=== PATIENT | male | born 1995 | race African-American/Black ===

== ENCOUNTER 2020-11-22 15:09 | Inpatient (IN) | payer BC, MEDICAID ==
[~2020-11-22] VITALS: Ht 172.7 cm; Wt 63.0 kg
[2020-11-22 16:04] VITALS: BP 123/78
[2020-11-22] MEDS ORDERED: IBUPROFEN 400MG TABLET PO PRN (17:45)
[2020-11-22] MEDS ORDERED: POLYETHYLENE GLYCOL 3350 (17GM) 1 DOSE PACK PO PRN (18:00)
[2020-11-22] MEDS ORDERED: LORAZEPAM 2MG/ML CPJ IM PRN (18:00)
[2020-11-22] MEDS ORDERED: SENNOSIDES 8.6MG TABLET PO PRN (18:00)
[2020-11-22] MEDS ORDERED: ONDANSETRON HCL 4MG TABLET PO PRN (18:00)
[2020-11-22] MEDS ORDERED: NALOXONE HCL 0.4MG/ML VIAL IV PRN (18:15)
[2020-11-22 18:25] VITALS: BP 123/78
[2020-11-22] MEDS: ACETAMINOPHEN 500MG TABLET PO PRN (19:57)
[2020-11-22] MEDS: OXYCODONE HCL 5MG TABLET PO PRN (19:58)
[2020-11-22 20:00] VITALS: BP 129/84
[2020-11-22] MEDS: LEVETIRACETAM 500MG TABLET PO SCH (20:54)
[2020-11-22] MEDS: TRAZODONE HCL 50MG TABLET PO SCH (20:54)
[2020-11-22] MEDS: ENOXAPARIN 40MG/0.4ML SYR SUBCUT SCH (20:55)
[2020-11-22] MEDS ORDERED: ENOXAPARIN 30MG/0.3ML SYR SUBCUT SCH (21:00)
[2020-11-22] MEDS ORDERED: TRAZODONE HCL 50MG TABLET PO SCH (22:00)
[2020-11-22] MEDS: TEMAZEPAM 15MG CAPSULE PO PRN (22:57)
[2020-11-23] MEDS: OXYCODONE HCL 5MG TABLET PO PRN ×3 (05:54→17:26)
[2020-11-23 07:59] VITALS: BP 107/67
[2020-11-23] MEDS: LEVETIRACETAM 500MG TABLET PO SCH ×2 (08:29→21:25)
[2020-11-23] MEDS: ARIPIPRAZOLE 5MG TABLET PO SCH (08:29)
[2020-11-23] MEDS: MAGNESIUM HYDROXIDE 400MG/5ML 30ML UDC PO SCH (08:29)
[2020-11-23] MEDS: CITALOPRAM HYDROBROMIDE 10MG TABLET PO SCH (08:29)
[2020-11-23 11:55] LABS: BASOPHILS % 0.4 % (0.0-2.0); EOSINOPHILS % 0.4 % (0.0-5.0); HEMATOCRIT. 33.4 % (42.0-52.0); HEMOGLOBIN. 11.1 g/dL (14.0-18.0); MEAN CORPUSCULAR HEMOGLOBIN 27.8 pg (28.0-32.0); MEAN CORPUSCULAR VOLUME 83.5 fL (80.0-94.0); MONOCYTES % 8.3 % (2.0-8.0); NEUTROPHILS % 77.9 % (40.0-76.0); PLATELET 493 x1000/uL (130-400); RED CELL DISTRIBUTION WIDTH 13.8 % (11.6-14.6)
[2020-11-23 12:00] LABS: CHLORIDE 100 mEq/L (98-107)
[2020-11-23 20:00] VITALS: BP 107/66
[2020-11-23] MEDS: TRAZODONE HCL 50MG TABLET PO SCH (21:24)
[2020-11-23] MEDS: TEMAZEPAM 15MG CAPSULE PO PRN (21:24)
[2020-11-23] MEDS: ENOXAPARIN 40MG/0.4ML SYR SUBCUT SCH (21:25)
[2020-11-23 21:28] LABS: CLARITY URINE CLEAR (CLEAR); COLOR URINE YELLOW (YELLOW); KETONES URINE NEGATIVE (NEGATIVE); LEUKOCYTE ESTERASE URINE NEGATIVE (NEGATIVE); NITRITE URINE NEGATIVE (NEGATIVE); OCCULT BLOOD URINE NEGATIVE (NEGATIVE); PH URINE 6.5 (4.5-8.0); PROTEIN URINE NEGATIVE (NEGATIVE); UROBILINOGEN URINE 0.2 E.U./dL (0.2-1.0)
[2020-11-24 08:00] VITALS: BP 119/78
[2020-11-24] MEDS: LEVETIRACETAM 500MG TABLET PO SCH ×2 (08:53→21:31)
[2020-11-24] MEDS: ARIPIPRAZOLE 5MG TABLET PO SCH (08:53)
[2020-11-24] MEDS: CITALOPRAM HYDROBROMIDE 10MG TABLET PO SCH (08:53)
[2020-11-24] MEDS: MAGNESIUM HYDROXIDE 400MG/5ML 30ML UDC PO SCH (08:53)
[2020-11-24] MEDS: ACETAMINOPHEN 500MG TABLET PO PRN (08:57)
[2020-11-24] MEDS: OXYCODONE HCL 5MG TABLET PO PRN (08:58)
[2020-11-24 20:00] VITALS: BP 120/75
[2020-11-24] MEDS: ENOXAPARIN 40MG/0.4ML SYR SUBCUT SCH (21:32)
[2020-11-24] MEDS: TRAZODONE HCL 50MG TABLET PO SCH (21:32)
[2020-11-25] MEDS: OXYCODONE HCL 5MG TABLET PO PRN ×2 (01:38→08:11)
[2020-11-25 07:43] VITALS: BP 131/78
[2020-11-25] MEDS: MAGNESIUM HYDROXIDE 400MG/5ML 30ML UDC PO SCH (08:10)
[2020-11-25] MEDS: CITALOPRAM HYDROBROMIDE 10MG TABLET PO SCH (08:10)
[2020-11-25] MEDS: ARIPIPRAZOLE 5MG TABLET PO SCH (08:10)
[2020-11-25] MEDS: LEVETIRACETAM 500MG TABLET PO SCH ×2 (08:10→21:11)
[2020-11-25] MEDS: POVIDONE-IODINE 10% TOPICAL SOLN 240ML TOP SCH ×3 (13:42→17:47)
[2020-11-25 20:00] VITALS: BP 118/74
[2020-11-25] MEDS: ENOXAPARIN 40MG/0.4ML SYR SUBCUT SCH (21:11)
[2020-11-25] MEDS: TRAZODONE HCL 50MG TABLET PO SCH (21:11)
[2020-11-26] MEDS: OXYCODONE HCL 5MG TABLET PO PRN (06:06)
[2020-11-26 08:00] VITALS: BP 108/63
[2020-11-26] MEDS: MAGNESIUM HYDROXIDE 400MG/5ML 30ML UDC PO SCH (08:26)
[2020-11-26] MEDS: CITALOPRAM HYDROBROMIDE 10MG TABLET PO SCH (08:26)
[2020-11-26] MEDS: ARIPIPRAZOLE 5MG TABLET PO SCH (08:26)
[2020-11-26] MEDS: LEVETIRACETAM 500MG TABLET PO SCH ×2 (08:26→20:36)
[2020-11-26] MEDS: POVIDONE-IODINE 10% TOPICAL SOLN 240ML TOP SCH ×3 (08:28→17:15)
[2020-11-26] MEDS: ACETAMINOPHEN 500MG TABLET PO PRN (11:25)
[2020-11-26] MEDS: CEFTRIAXONE 1,000 MG in DEXTROSE 5% WATER 50 ML IV SCH (11:47)
[2020-11-26] MEDS: VANCOMYCIN 1 G PREMIX 200 ML IV SCH ×2 (12:31→17:14)
[2020-11-26 20:00] VITALS: BP 115/74
[2020-11-26] MEDS: ENOXAPARIN 40MG/0.4ML SYR SUBCUT SCH (20:36)
[2020-11-26] MEDS: TRAZODONE HCL 50MG TABLET PO SCH (20:37)
[2020-11-27] MEDS: VANCOMYCIN 1 G PREMIX 200 ML IV SCH ×3 (01:23→17:27)
[2020-11-27] MEDS: OXYCODONE HCL 5MG TABLET PO PRN ×2 (04:52→11:46)
[2020-11-27 08:00] VITALS: BP 102/62
[2020-11-27] MEDS: ARIPIPRAZOLE 5MG TABLET PO SCH (08:22)
[2020-11-27] MEDS: CITALOPRAM HYDROBROMIDE 10MG TABLET PO SCH (08:23)
[2020-11-27] MEDS: LEVETIRACETAM 500MG TABLET PO SCH ×2 (08:23→21:29)
[2020-11-27] MEDS: MAGNESIUM HYDROXIDE 400MG/5ML 30ML UDC PO SCH (08:23)
[2020-11-27] MEDS: POVIDONE-IODINE 10% TOPICAL SOLN 240ML TOP SCH ×3 (08:23→16:53)
[2020-11-27] MEDS: CEFTRIAXONE 1,000 MG in DEXTROSE 5% WATER 50 ML IV SCH (11:12)
[2020-11-27 16:40] LABS: CHLORIDE 102 mEq/L (98-107)
[2020-11-27 20:00] VITALS: BP 120/80
[2020-11-27] MEDS ORDERED: OXYCODONE HCL 5MG TABLET PO PRN (20:15)
[2020-11-27] MEDS: TRAZODONE HCL 50MG TABLET PO SCH (21:29)
[2020-11-27] MEDS: ENOXAPARIN 40MG/0.4ML SYR SUBCUT SCH (21:29)
[2020-11-28] MEDS: VANCOMYCIN 1 G PREMIX 200 ML IV SCH ×2 (02:09→09:54)
[2020-11-28] MEDS: OXYCODONE HCL 5MG TABLET PO PRN (03:17)
[2020-11-28 08:00] VITALS: BP 132/84
[2020-11-28] MEDS: ARIPIPRAZOLE 5MG TABLET PO SCH (09:44)
[2020-11-28] MEDS: MAGNESIUM HYDROXIDE 400MG/5ML 30ML UDC PO SCH (09:44)
[2020-11-28] MEDS: CITALOPRAM HYDROBROMIDE 10MG TABLET PO SCH (09:45)
[2020-11-28] MEDS: LEVETIRACETAM 500MG TABLET PO SCH ×2 (09:45→21:38)
[2020-11-28] MEDS: BACITRACIN 15GM TUBE TOP SCH (09:45)
[2020-11-28] MEDS: POVIDONE-IODINE 10% TOPICAL SOLN 240ML TOP SCH ×3 (09:46→17:47)
[2020-11-28] MEDS: CEFTRIAXONE 1,000 MG in DEXTROSE 5% WATER 50 ML IV SCH (11:53)
[2020-11-28] MEDS: ACETAMINOPHEN 500MG TABLET PO PRN (13:12)
[2020-11-28] MEDS ORDERED: NALOXONE HCL 0.4MG/ML VIAL IV PRN (16:15)
[2020-11-28] MEDS: VANCOMYCIN 750 MG PREMIX 150 ML IV SCH ×2 (17:39→23:51)
[2020-11-28 20:00] VITALS: BP 133/93
[2020-11-28] MEDS: ENOXAPARIN 40MG/0.4ML SYR SUBCUT SCH (21:38)
[2020-11-28] MEDS: TRAZODONE HCL 50MG TABLET PO SCH (21:38)
[2020-11-29] MEDS: OXYCODONE HCL 5MG TABLET PO PRN (03:25)
[2020-11-29] MEDS: VANCOMYCIN 750 MG PREMIX 150 ML IV SCH ×3 (06:28→21:45)
[2020-11-29 08:00] VITALS: BP 122/84
[2020-11-29] MEDS: LEVETIRACETAM 500MG TABLET PO SCH ×2 (09:29→21:42)
[2020-11-29] MEDS: CITALOPRAM HYDROBROMIDE 10MG TABLET PO SCH (09:29)
[2020-11-29] MEDS: ARIPIPRAZOLE 5MG TABLET PO SCH (09:29)
[2020-11-29] MEDS: MAGNESIUM HYDROXIDE 400MG/5ML 30ML UDC PO SCH (09:29)
[2020-11-29] MEDS: POVIDONE-IODINE 10% TOPICAL SOLN 240ML TOP SCH ×3 (09:33→17:59)
[2020-11-29] MEDS: ACETAMINOPHEN 500MG TABLET PO PRN (10:32)
[2020-11-29] MEDS: CEFTRIAXONE 1,000 MG in DEXTROSE 5% WATER 50 ML IV SCH (11:57)
[2020-11-29 15:57] LABS: BASOPHILS % 0.7 % (0.0-2.0); EOSINOPHILS % 1.6 % (0.0-5.0); HEMOGLOBIN. 10.8 g/dL (14.0-18.0); LYMPHOCYTES % 16.1 % (20.0-50.0); MEAN CORPUSCULAR HEMOGLOBIN 27.9 pg (28.0-32.0); MEAN CORPUSCULAR VOLUME 82.8 fL (80.0-94.0); MEAN PLATELET VOLUME 9.5 fl (7.4-10.4); MONOCYTES % 8.5 % (2.0-8.0); NEUTROPHILS % 73.1 % (40.0-76.0); PLATELET 360 x1000/uL (130-400); RED BLOOD CELL COUNT 3.87 mill/uL (4.7-6.1); RED CELL DISTRIBUTION WIDTH 14.4 % (11.6-14.6)
[2020-11-29 16:05] LABS: CHLORIDE 105 mEq/L (98-107)
[2020-11-29 16:13] LABS: VANCOMYCIN TROUGH 24.1 ug/mL (5.0-10.0)
[2020-11-29 20:00] VITALS: BP 117/79
[2020-11-29] MEDS: TRAZODONE HCL 50MG TABLET PO SCH (20:16)
[2020-11-29] MEDS: ENOXAPARIN 40MG/0.4ML SYR SUBCUT SCH (21:45)
[2020-11-30] MEDS: ACETAMINOPHEN 500MG TABLET PO PRN (02:42)
[2020-11-30] MEDS: VANCOMYCIN 750 MG PREMIX 150 ML IV SCH (05:11)
[2020-11-30 06:01] LABS: CHLORIDE 106 mEq/L (98-107)
[2020-11-30 08:00] VITALS: BP 126/84
[2020-11-30] MEDS: CITALOPRAM HYDROBROMIDE 10MG TABLET PO SCH (08:17)
[2020-11-30] MEDS: LEVETIRACETAM 500MG TABLET PO SCH ×2 (08:17→20:25)
[2020-11-30] MEDS: ARIPIPRAZOLE 5MG TABLET PO SCH (08:18)
[2020-11-30] MEDS: POVIDONE-IODINE 10% TOPICAL SOLN 240ML TOP SCH ×3 (08:22→16:57)
[2020-11-30] MEDS: BACITRACIN 15GM TUBE TOP SCH (08:22)
[2020-11-30] MEDS: MAGNESIUM HYDROXIDE 400MG/5ML 30ML UDC PO SCH (08:23)
[2020-11-30] MEDS: CEFTRIAXONE 1,000 MG in DEXTROSE 5% WATER 50 ML IV SCH (10:50)
[2020-11-30] MEDS: VANCOMYCIN 1 G PREMIX 200 ML IV SCH ×2 (14:10→21:49)
[2020-11-30 20:00] VITALS: BP 122/83
[2020-11-30] MEDS: TRAZODONE HCL 50MG TABLET PO SCH (20:25)
[2020-11-30] MEDS: ENOXAPARIN 40MG/0.4ML SYR SUBCUT SCH (20:26)
[2020-12-01] MEDS: VANCOMYCIN 1 G PREMIX 200 ML IV SCH ×3 (05:01→21:30)
[2020-12-01 07:57] VITALS: BP 112/75
[2020-12-01] MEDS: LEVETIRACETAM 500MG TABLET PO SCH ×2 (08:40→21:17)
[2020-12-01] MEDS: ARIPIPRAZOLE 5MG TABLET PO SCH (08:40)
[2020-12-01] MEDS: CITALOPRAM HYDROBROMIDE 10MG TABLET PO SCH (08:40)
[2020-12-01] MEDS: ACETAMINOPHEN 500MG TABLET PO PRN (08:41)
[2020-12-01] MEDS: MAGNESIUM HYDROXIDE 400MG/5ML 30ML UDC PO SCH (08:51)
[2020-12-01] MEDS: POVIDONE-IODINE 10% TOPICAL SOLN 240ML TOP SCH ×3 (08:51→16:11)
[2020-12-01 20:00] VITALS: BP 118/79
[2020-12-01] MEDS: TRAZODONE HCL 50MG TABLET PO SCH (21:31)
[2020-12-01] MEDS: ENOXAPARIN 40MG/0.4ML SYR SUBCUT SCH (21:31)
[2020-12-02 08:00] VITALS: BP 123/84
[2020-12-02] MEDS: POVIDONE-IODINE 10% TOPICAL SOLN 240ML TOP SCH ×3 (09:11→17:17)
[2020-12-02] MEDS: BACITRACIN 15GM TUBE TOP SCH (09:11)
[2020-12-02] MEDS: ARIPIPRAZOLE 5MG TABLET PO SCH (09:11)
[2020-12-02] MEDS: LEVETIRACETAM 500MG TABLET PO SCH ×2 (09:11→21:28)
[2020-12-02] MEDS: CITALOPRAM HYDROBROMIDE 10MG TABLET PO SCH (09:11)
[2020-12-02] MEDS: MAGNESIUM HYDROXIDE 400MG/5ML 30ML UDC PO SCH (09:18)
[2020-12-02 09:24] LABS: CHLORIDE 104 mEq/L (98-107)
[2020-12-02] MEDS: OXYCODONE HCL 5MG TABLET PO PRN (13:17)
[2020-12-02 20:30] VITALS: BP 121/83
[2020-12-02] MEDS: ENOXAPARIN 40MG/0.4ML SYR SUBCUT SCH ×2 (21:00→21:28)
[2020-12-02] MEDS: TRAZODONE HCL 50MG TABLET PO SCH (21:28)
[2020-12-03] MEDS ORDERED: OXYCODONE HCL 5MG TABLET PO PRN ×2 (06:00)
[2020-12-03 08:27] VITALS: BP 108/68
[2020-12-03] MEDS: LEVETIRACETAM 500MG TABLET PO SCH ×2 (08:56→21:11)
[2020-12-03] MEDS: MAGNESIUM HYDROXIDE 400MG/5ML 30ML UDC PO SCH (08:56)
[2020-12-03] MEDS: ARIPIPRAZOLE 5MG TABLET PO SCH (08:56)
[2020-12-03] MEDS: CITALOPRAM HYDROBROMIDE 10MG TABLET PO SCH (08:57)
[2020-12-03] MEDS: POVIDONE-IODINE 10% TOPICAL SOLN 240ML TOP SCH ×3 (09:00→19:08)
[2020-12-03 20:00] VITALS: BP 112/69
[2020-12-03] MEDS: TRAZODONE HCL 50MG TABLET PO SCH (21:12)
[2020-12-03] MEDS: ENOXAPARIN 40MG/0.4ML SYR SUBCUT SCH (21:13)
[2020-12-04 08:20] VITALS: BP 113/72
[2020-12-04] MEDS: CITALOPRAM HYDROBROMIDE 10MG TABLET PO SCH (11:09)
[2020-12-04] MEDS: LEVETIRACETAM 500MG TABLET PO SCH ×2 (11:09→20:40)
[2020-12-04] MEDS: ARIPIPRAZOLE 5MG TABLET PO SCH (11:09)
[2020-12-04] MEDS: MAGNESIUM HYDROXIDE 400MG/5ML 30ML UDC PO SCH (11:10)
[2020-12-04] MEDS: BACITRACIN 15GM TUBE TOP SCH (11:10)
[2020-12-04] MEDS: POVIDONE-IODINE 10% TOPICAL SOLN 240ML TOP SCH ×3 (11:10→17:43)
[2020-12-04] MEDS: ACETAMINOPHEN 500MG TABLET PO PRN (13:50)
[2020-12-04 20:00] VITALS: BP 121/82
[2020-12-04] MEDS: TRAZODONE HCL 50MG TABLET PO SCH (20:40)
[2020-12-04] MEDS: ENOXAPARIN 40MG/0.4ML SYR SUBCUT SCH (20:45)
[2020-12-05] MEDS: ACETAMINOPHEN 500MG TABLET PO PRN ×2 (05:50→13:38)
[2020-12-05 08:00] VITALS: BP 106/69
[2020-12-05] MEDS: CITALOPRAM HYDROBROMIDE 10MG TABLET PO SCH (09:10)
[2020-12-05] MEDS: LEVETIRACETAM 500MG TABLET PO SCH ×2 (09:10→21:11)
[2020-12-05] MEDS: ARIPIPRAZOLE 5MG TABLET PO SCH (09:10)
[2020-12-05] MEDS: MAGNESIUM HYDROXIDE 400MG/5ML 30ML UDC PO SCH (09:10)
[2020-12-05] MEDS: POVIDONE-IODINE 10% TOPICAL SOLN 240ML TOP SCH ×3 (09:14→18:58)
[2020-12-05 20:00] VITALS: BP 107/58
[2020-12-05] MEDS: TRAZODONE HCL 50MG TABLET PO SCH (21:11)
[2020-12-05] MEDS: ENOXAPARIN 40MG/0.4ML SYR SUBCUT SCH (21:12)
[2020-12-06 08:00] VITALS: BP 118/78
[2020-12-06] MEDS: CITALOPRAM HYDROBROMIDE 10MG TABLET PO SCH (08:52)
[2020-12-06] MEDS: LEVETIRACETAM 500MG TABLET PO SCH ×2 (08:53→20:35)
[2020-12-06] MEDS: MAGNESIUM HYDROXIDE 400MG/5ML 30ML UDC PO SCH (08:53)
[2020-12-06] MEDS: ARIPIPRAZOLE 5MG TABLET PO SCH (08:53)
[2020-12-06] MEDS: POVIDONE-IODINE 10% TOPICAL SOLN 240ML TOP SCH ×3 (08:53→18:00)
[2020-12-06] MEDS: BACITRACIN 15GM TUBE TOP SCH (08:54)
[2020-12-06 20:00] VITALS: BP 132/87
[2020-12-06] MEDS: ENOXAPARIN 40MG/0.4ML SYR SUBCUT SCH (20:36)
[2020-12-06] MEDS: TRAZODONE HCL 50MG TABLET PO SCH (20:36)
[2020-12-07 08:00] VITALS: BP 110/69
[2020-12-07] MEDS: LEVETIRACETAM 500MG TABLET PO SCH ×2 (09:19→20:23)
[2020-12-07] MEDS: MAGNESIUM HYDROXIDE 400MG/5ML 30ML UDC PO SCH (09:19)
[2020-12-07] MEDS: ARIPIPRAZOLE 5MG TABLET PO SCH (09:19)
[2020-12-07] MEDS: CITALOPRAM HYDROBROMIDE 10MG TABLET PO SCH (09:19)
[2020-12-07] MEDS: ACETAMINOPHEN 500MG TABLET PO PRN ×2 (09:19→14:49)
[2020-12-07] MEDS: POVIDONE-IODINE 10% TOPICAL SOLN 240ML TOP SCH ×3 (09:22→17:00)
[2020-12-07] MEDS ORDERED: NALOXONE HCL 0.4MG/ML VIAL IV PRN (15:15)
[2020-12-07 20:00] VITALS: BP 113/79
[2020-12-07] MEDS: ENOXAPARIN 40MG/0.4ML SYR SUBCUT SCH (20:23)
[2020-12-07] MEDS: TRAZODONE HCL 50MG TABLET PO SCH (20:23)
[2020-12-08 08:00] VITALS: BP 122/70
[2020-12-08] MEDS: MAGNESIUM HYDROXIDE 400MG/5ML 30ML UDC PO SCH (09:35)
[2020-12-08] MEDS: LEVETIRACETAM 500MG TABLET PO SCH ×2 (09:35→21:44)
[2020-12-08] MEDS: CITALOPRAM HYDROBROMIDE 10MG TABLET PO SCH (09:35)
[2020-12-08] MEDS: ACETAMINOPHEN 500MG TABLET PO PRN (09:36)
[2020-12-08] MEDS: ARIPIPRAZOLE 5MG TABLET PO SCH (09:47)
[2020-12-08] MEDS: BACITRACIN 15GM TUBE TOP SCH (09:48)
[2020-12-08] MEDS: POVIDONE-IODINE 10% TOPICAL SOLN 240ML TOP SCH ×3 (09:49→17:29)
[2020-12-08 20:00] VITALS: BP 109/68
[2020-12-08] MEDS: TRAZODONE HCL 50MG TABLET PO SCH (21:45)
[2020-12-08] MEDS: ENOXAPARIN 40MG/0.4ML SYR SUBCUT SCH (21:46)
[2020-12-09] MEDS ORDERED: OXYCODONE HCL 5MG TABLET PO PRN ×2 (01:00)
[2020-12-09 08:00] VITALS: BP 109/66
[2020-12-09] MEDS: MAGNESIUM HYDROXIDE 400MG/5ML 30ML UDC PO SCH (08:03)
[2020-12-09] MEDS: POVIDONE-IODINE 10% TOPICAL SOLN 240ML TOP SCH ×3 (08:03→16:40)
[2020-12-09] MEDS: ARIPIPRAZOLE 5MG TABLET PO SCH (08:03)
[2020-12-09] MEDS: LEVETIRACETAM 500MG TABLET PO SCH ×2 (08:03→20:44)
[2020-12-09] MEDS: CITALOPRAM HYDROBROMIDE 10MG TABLET PO SCH (08:03)
[2020-12-09] MEDS ORDERED: NALOXONE HCL 0.4MG/ML VIAL IV PRN (12:15)
[2020-12-09 20:00] VITALS: BP 123/81
[2020-12-09] MEDS: TRAZODONE HCL 50MG TABLET PO SCH (20:44)
[2020-12-09] MEDS: ENOXAPARIN 40MG/0.4ML SYR SUBCUT SCH (20:45)
[2020-12-10 07:16] LABS: HEMATOCRIT 39.3 % (42.0-52.0); HEMOGLOBIN 12.7 g/dL (14.0-18.0); MEAN CORPUSCULAR HEMOGLOBIN 27.3 pg (28.0-32.0); MEAN CORPUSCULAR VOLUME 84.5 fL (80.0-94.0); RED BLOOD CELL COUNT 4.65 mill/uL (4.7-6.1); RED CELL DISTRIBUTION WIDTH 15.4 % (11.6-14.6)
[2020-12-10 07:18] LABS: CHLORIDE 103 mEq/L (98-107)
[2020-12-10 08:00] VITALS: BP 114/80
[2020-12-10] MEDS: ARIPIPRAZOLE 5MG TABLET PO SCH (08:21)
[2020-12-10] MEDS: CITALOPRAM HYDROBROMIDE 10MG TABLET PO SCH (08:22)
[2020-12-10] MEDS: POVIDONE-IODINE 10% TOPICAL SOLN 240ML TOP SCH ×3 (08:22→16:32)
[2020-12-10] MEDS: LEVETIRACETAM 500MG TABLET PO SCH ×2 (08:22→20:36)
[2020-12-10] MEDS: BACITRACIN 15GM TUBE TOP SCH (08:23)
[2020-12-10] MEDS: MAGNESIUM HYDROXIDE 400MG/5ML 30ML UDC PO SCH (08:26)
[2020-12-10 20:00] VITALS: BP 118/78
[2020-12-10] MEDS: TRAZODONE HCL 50MG TABLET PO SCH (20:36)
[2020-12-10] MEDS: ENOXAPARIN 40MG/0.4ML SYR SUBCUT SCH (20:36)
[2020-12-11 08:00] VITALS: BP 110/77
[2020-12-11] MEDS: CITALOPRAM HYDROBROMIDE 10MG TABLET PO SCH (08:45)
[2020-12-11] MEDS: LEVETIRACETAM 500MG TABLET PO SCH (08:45)
[2020-12-11] MEDS: ARIPIPRAZOLE 5MG TABLET PO SCH (08:45)
[2020-12-11] MEDS: ACETAMINOPHEN 500MG TABLET PO PRN (08:46)
[2020-12-11] MEDS: MAGNESIUM HYDROXIDE 400MG/5ML 30ML UDC PO SCH (08:49)
[2020-12-11] MEDS: POVIDONE-IODINE 10% TOPICAL SOLN 240ML TOP SCH ×2 (08:49→13:04)
[2020-12-11 12:24] VITALS: BP 110/77
== END 2020-12-11 13:31 | disposition home health service (06) | DRG 83 ==
PROVIDERS: ADMIT Psychiatry & Neurology Neurology; ATTEND Hospitalist
DX: S06.6X9A Traumatic subarachnoid hemorrhage with loss of consciousness of unspecified duration, initial encounter (principal); E87.1 Hypo-osmolality and hyponatremia; G81.94 Hemiplegia, unspecified affecting left nondominant side; G93.49 Other encephalopathy; S02.80XA Fracture of other specified skull and facial bones, unspecified side, initial encounter for closed fracture; S06.1X9A Traumatic cerebral edema with loss of consciousness of unspecified duration, initial encounter; D69.6 Thrombocytopenia, unspecified; I10 Essential (primary) hypertension; S06.5X9A Traumatic subdural hemorrhage with loss of consciousness of unspecified duration, initial encounter; S02.85XA Fracture of orbit, unspecified, initial encounter for closed fracture; R47.1 Dysarthria and anarthria; S02.119B Unspecified fracture of occiput, initial encounter for open fracture; W34.09XA Accidental discharge from other specified firearms, initial encounter; Z82.49 Family history of ischemic heart disease and other diseases of the circulatory system; Y93.89 Activity, other specified; Y92.89 Other specified places as the place of occurrence of the external cause; Y99.8 Other external cause status
CPT/HCPCS: 36415; 80048; 80053; 80202; 81003; 85025; 85027; 92523; 92610; 93970; 95816; 97110; 97112; 97116; 97140; 97162; 97167; 97530; 97535; J0696; J1650; J3370; J7040; J7060